=== PATIENT | female | born 1975 ===

== ENCOUNTER 2024-07-24 05:34 | Day surgery (SDC) | payer OTHER ==
[2024-07-18 09:33] LABS: CALCIUM 9.6 mg/dL (8.5-10.1); CREATININE SERUM 0.84 mg/dL (0.55-1.02); GFR 72.67; POTASSIUM 3.71 mEq/L (3.5-5.1)
[2024-07-18 10:29] VITALS: BP 11/76
[2024-07-24] MEDS ORDERED: METRONIDAZOLE/SODIUM CHLORIDE 500 MG/100 ML PIGGYBACK IV ONE (12:23)
[2024-07-24] MEDS ORDERED: CEFTRIAXONE SODIUM 2,000 MG VIAL ONE (12:23)
[2024-07-24] MEDS ORDERED: ENOXAPARIN SODIUM 40 MG/0.4 ML SYRINGE SUBCUTANEO ONE (12:23)
[2024-07-24] MEDS ORDERED: BUPIVACAINE HCL/MPF 0.5% 30ML VIAL ONE (14:50)
[2024-07-24] MEDS ORDERED: SUGAMMADEX SODIUM 200 MG/2 ML VIAL IV ONE (16:30)
[2024-07-24] MEDS ORDERED: NEURONTIN300 MG PO (17:11)
[2024-07-24] MEDS ORDERED: PERCOCET 5-3251 EACH PO (17:11)
[2024-07-24] MEDS ORDERED: POLY119PG PO (17:11)
[2024-07-24] MEDS ORDERED: CELEBREX200MG PO (17:11)
[2024-07-24] MEDS ORDERED: MORPHINE SULFATE 4 MG/ML VIAL IV ONE ×2 (17:15→18:15)
== END 2024-07-24 19:25 | disposition home or self-care (01) ==
LOC: CIR.AMB 05:34
PROVIDERS: ATTEND Surgery
DX: K43.0 Incisional hernia with obstruction, without gangrene (principal); K76.0 Fatty (change of) liver, not elsewhere classified; H52.209 Unspecified astigmatism, unspecified eye; H52.10 Myopia, unspecified eye
CPT/HCPCS: 49596; C1781